=== PATIENT | female | born 1960 | race Caucasian/White ===

== ENCOUNTER → 2022-02-19 | Outpatient (CLI) | payer OTHER | LOC: HEART CORB 09:30 | DX: R07.2 Precordial pain (principal); R06.02 Shortness of breath | CPT/HCPCS: 78452; A9502; J2785 ==

== ENCOUNTER → 2022-02-23 | Outpatient (CLI) | payer OTHER | LOC: EXRD 02-18 13:00 | DX: Z78.0 Asymptomatic menopausal state (principal); E55.9 Vitamin D deficiency, unspecified | CPT/HCPCS: 77080 ==

== ENCOUNTER → 2022-02-24 | Outpatient (CLI) | payer OTHER | LOC: EXRD 16:00 | DX: N28.9 Disorder of kidney and ureter, unspecified (principal) | CPT/HCPCS: 76775 ==